=== PATIENT | male | born 1945 | race Caucasian/White ===

== ENCOUNTER → 2024-03-09 10:11 | Outpatient (REF) | payer MEDICARE, OTHER, SELFPAY | LOC: RAD 10:11 | PROVIDERS: ATTENDING PHYSICIAN Internal Medicine Endocrinology, Diabetes & Metabolism | DX: E04.2 Nontoxic multinodular goiter (principal); R73.9 Hyperglycemia, unspecified | CPT/HCPCS: 76536 ==

== ENCOUNTER → 2024-04-16 06:42 | Day surgery (SDC) | payer MEDICARE, OTHER, SELFPAY | LOC: GI 06:42 | PROVIDERS: ATTENDING PHYSICIAN Specialist | DX: D12.3 Benign neoplasm of transverse colon (principal); K63.5 Polyp of colon; K56.2 Volvulus; R19.4 Change in bowel habit; Z79.01 Long term (current) use of anticoagulants | CPT/HCPCS: 45385; 45380; 88305 ==

== ENCOUNTER → 2024-10-14 09:21 | Day surgery (SDC) | payer MEDICARE, OTHER, SELFPAY ==
[2024-10-14] VITALS (8 sets, daily range): BP systolic 118–154; BP diastolic 56–85; BMI 38.9
[2024-10-14 09:44] LABS: Hematocrit 42.9 % (39.0-52.0); Hemoglobin 14.5 g/dL (13.0-18.0); Mean Corp Hgb Conc. 33.8 g/dL (33.0-37.0); Mean Corpuscular Hgb 31.4 pg (27.0-31.0); Mean Corpuscular Volume 92.9 fL (80.0-94.0); Mean Platelet Volume 10.3 fL (7.4-10.4); Platelet Count 222 10^3/uL (130-400); Red Blood Cell Count 4.62 10^6/uL (4.70-6.10); Red Cell Dist. Width 12.9 % (11.5-14.5); White Blood Cell Count 8.9 10^3/uL (4.8-10.8)
[2024-10-14 09:57] LABS: ALT (SGPT) 39 U/L (0-50); AST (SGOT) 31 U/L (17-59); Albumin 4.5 g/dl (3.5-5.0); Alkaline Phosphatase 75 U/L (38-126); Blood Urea Nitrogen 21 mg/dl (9-20); Calcium 9.5 mg/dl (8.4-10.2); Carbon Dioxide 34 mmol/L (22-30); Chloride 100 mmol/L (98-107); Glucose 123 mg/dl (70-99); Potassium 4.5 mmol/L (3.5-5.1); Sodium 140 mmol/L (135-145); Total Bilirubin 0.9 mg/dl (0.2-1.3); Total Protein 7.3 g/dl (6.3-8.2); eGFR > 60.00
[2024-10-14] MEDS: VANCOCIN 530 MG IV (11:10)
--- NOTE | 2024-10-14 12:05 | ITS.CL.PACE ---
[employer] - Pacemaker Implant
Pacemaker Implant
Procedure Report:
PACEMAKER IMPLANT REPORT
Date of Procedure: October 14, 2024
Procedure:
Implantation of dual-chamber permanent pacemaker utilizing the left bundle branch for conduction system pacing
Indication/Diagnosis:
Non-reversible symptomatic bradycardia due to sinus node dysfunction.
After informed consent was obtained, 'time out' was called and confirmed, the patient was prepped and draped in a sterile fashion. Lidocaine with epi was used for local anesthesia. Central venous access was obtained via subclavian venipuncture. An
incision was made along the left chest and a pre-pectoral pocket was formed. Using a Seldinger technique and peel-away sheaths, the pacing leads were placed under fluoroscopic guidance.
Fluoroscopy was used to determine likely anatomic site for left bundle branch pacing. The CrushBlvdtronic C315 sheath was used to deliver the Medtronic 3830 Selectsecure pacing lead with the helix exposed just exposed from the sheath tip during continuous
monitoring when pacemapping the septum during gentle clockwise rotation to obtain a paced QRS morphology of a W pattern in lead V1. Once the suspected optimal site was identified, lead deployment was performed with several rapid rotations as paced
QRS morphology was intermittently monitored until a paced QRS complex in lead V1 demonstrated development of an R wave (rSR).
Unipolar pacing impedance dropped by approximately 100 ohms suggesting it had reached the left ventricular subendocardial.
Stable VEgm injury current is present throughout final lead position including at end of case, suggesting there was no perforation through the septum into the LV cavity.
Unipolar pacing impedance is 1100 Ohms
Unipolar pacing threshold is stable at 0.5 V @ 0.4 ms.
Final conduction system paced QRS complex duration is 95 ms
LVAT is 79 ms and peak V5 -> peak V1 timing is 55 ms
Right atrial lead was placed at the RAA.
Once testing (see below) showed adequate and stable function, the leads were secured using the suture sleeves. The pocket was liberally irrigated with antibiotic solution. The leads were connected to the generator header and the leads and
generator were placed within the pocket. Fluoroscopy confirmed stable lead position. The pocket was closed in the typical fashion.
Fluoroscopy was used to guide lead placement.
IMPLANTS:
Medtronic [id number], SN: [id number], Left Pectoral
RA: Medtronic 5076-45, SN: [id number], RAA
Left Bundle: Medtronic 3830 , SN:[id number], Interventricular septum at LBB
DEVICE TESTING:
Sensing: RA 1.3 mV, RV 19 mV
Capture: RA 1.5 V@0.4ms, RV 0.5 V@0.4ms
Ohms: RA 722, RV 1170
FINAL PROGRAMMING
Vincenzo Pacing: AAIR+ 50-130 ppm
COMPLICATIONS:
None
CONCLUSIONS:
Successful implant of dual chamber permanent pacemaker utilizing Left Bundle Branch conduction system capture for ventricular resynchronization pacing.
RECOMMENDATIONS:
1. Post-op care (tele, CXR, IV abx)
2. In-Office wound check in 5-7 days
--- NOTE | 2024-10-14 16:08 | W.PN.UPDATE ---
Update Note
Progress Note Update
79 yo WM SSS post DC PPM (same day). He has minimal pain at site, pressure dressing on 24 hours, EKG SB high 50's set at 50-130, CXR no PTX leads in position, site no drainage. He will resume Eliquis on night. Activity restrictions reviewed.
He will have incision check in 1 week. He is for d/c home after 5pm.
== END | disposition home or self-care (01) ==
LOC: CATH 09:21
PROVIDERS: ATTENDING PHYSICIAN Internal Medicine Cardiovascular Disease; OTHER PHYSICIAN Internal Medicine Cardiovascular Disease
DX: I49.5 Sick sinus syndrome (principal); Z88.0 Allergy status to penicillin; I10 Essential (primary) hypertension; I25.10 Atherosclerotic heart disease of native coronary artery without angina pectoris; I48.91 Unspecified atrial fibrillation
CPT/HCPCS: 33208; 71045; 80053; 85027; 93005; C1769; C1785; C1887; C1892; C1898; Q9967